=== PATIENT | female | born 1930 | race Caucasian/White ===

== ENCOUNTER 2017-07-24 08:57 | Emergency (ER) | payer OTHER ==
[~2017-07-24] VITALS: Ht 162.6 cm; Wt 62.1 kg
[~2017-07-24 08:57] MED LIST: AVAPRO300 MG PO; CITRATE OF MAG296 ML PO; GLUCOPHAGE500 MG PO; HYDROCHLOROTH12.5 M3 PO; INDERAL40 MG PO; LANTUS 10100 UNITS/ SC; LIPITOR40 MG PO; MIRALAX17 GM PO; NOVOLOG 10100 UNITS/ SQ; RANITIDINE HCL150 M1 PO; SANCTURA XR60 MG PO; VITAMIN B-1250 MC3 PO; VITAMIN D2000 INTUN PO; ZETIA10 MG PO
[2017-07-24 09:39] LABS: HEMOGLOBIN 12.7 G/DL (11.9-15.5); MCH 31.7 PG (29.0-34.0); MCHC 33.4 G/DL (30.0-36.0); MCV 94.8 FL (83-99); PLATELET COUNT 203 K/uL (156-360); RBC DIS.WIDTH-CV 12.8 % (11.8-14.6); RBC DIS.WIDTH-SD 44.7 % (39-53); RED BLOOD COUNT 4.01 M/uL (3.80-5.20); WHITE BLOOD COUNT 9.9 K/uL (4.1-10.2)
[2017-07-24 10:06] LABS: ALBUMIN 3.9 G/DL (3.2-4.8); CHLORIDE 105 MEQ/L (99-109); POTASSIUM 3.9 MEQ/L (3.7-5.4); SODIUM 144 MEQ/L (136-147); TOTAL BILIRUBIN 0.8 MG/DL (0.0-1.0)
[2017-07-24 10:12] LABS: ALKALINE PHOSPHATASE 99 IU/L (3-129); ALT (GPT) 12 IU/L (3-49); AST (GOT) 23 IU/L (2-34); GFR ESTIMATE (CALCULATED) 56 mL/min/; GLUCOSE 106 mg/dL (70-99); TOTAL PROTEIN 6.4 G/DL (6.4-8.3); UREA NITROGEN (BUN) 19 mg/dL (9-23)
[2017-07-24 10:15] LABS: TROP-I INTERPRETATION NEGATIVE; TROPONIN-I < 0.01 ng/mL (0.0-0.30)
[2017-07-24] MEDS ORDERED: PANTOPRAZOLE SO40 MG (11:34)
[2017-07-24] MEDS ORDERED: PROTONIX40 MG PO (11:38)
[2017-07-24 11:53] VITALS: BP 138/61
== END 2017-07-24 11:53 | disposition home or self-care (01) ==
LOC: EME 08:57
PROVIDERS: Nurse Practitioner Family
DX: K44.9 Diaphragmatic hernia without obstruction or gangrene (principal); K21.9 Gastro-esophageal reflux disease without esophagitis; R11.10 Vomiting, unspecified; E11.9 Type 2 diabetes mellitus without complications; Z79.4 Long term (current) use of insulin; E78.5 Hyperlipidemia, unspecified; I10 Essential (primary) hypertension; Z95.5 Presence of coronary angioplasty implant and graft; Z90.49 Acquired absence of other specified parts of digestive tract
CPT/HCPCS: 74177; 80053; 82948; 84484; 85027; 93005; 99281; 99285; J7030

== ENCOUNTER → 2017-07-25 | Outpatient (CLI) | payer OTHER ==
[~2017-07-25] MED LIST changes: +PANTOPRAZOLE SO40 MG; +PROTONIX40 MG PO
== END | disposition home or self-care (01) ==
LOC: AMB 14:58
PROVIDERS: Specialist
DX: K20.9 Esophagitis, unspecified (principal); K22.5 Diverticulum of esophagus, acquired; K44.9 Diaphragmatic hernia without obstruction or gangrene; K22.2 Esophageal obstruction; K22.4 Dyskinesia of esophagus; T18.128A Food in esophagus causing other injury, initial encounter
CPT/HCPCS: 82948; J2765